=== PATIENT | female | born 1940 | race Two or more races ===

== ENCOUNTER → 2016-06-26 | Outpatient (CLI) | payer MEDICAID ==
--- NOTE | ~2016-06-26 | US128 ---
[id number] [facility] [address] [place], [place] [address] [id number] O MR#: [id number] Acc #: [id number] NAME: GRACY RAMOS : 1940 SEX: F STUDY DATE/TIME: 06/26/2016 13:43 UNIT: [facility] ROOM: STUDY DESCRIPTION: Thyroid Attending Physician: Audi Rios M.D. Referring Physician: Audi Rios M.D. Ordering Physician: Audi Rios M.D. Primary Care Physician: Audi Rios M.D. MEDICAL IMAGING REPORT This report is preliminary unless electronic signature is present EXAM Thyroid ultrasound. INDICATIONS Difficulty swallowing and tightness in the throat since 1998. Patient is on thyroid medication. TECHNIQUE wilson scale and color Doppler sonographic images were obtained through the patient's thyroid gland. FINDINGS Right lobe of the thyroid gland measures within normal size limits at 4.0 x 2.6 x 2.2 cm; left lobe is enlarged at 1.9 x 2.7 x 5 cm. Overall thyroid parenchyma is very heterogeneous, although I do not see any discrete nodules. IMPRESSION Heterogeneous thyroid parenchyma without focal thyroid nodules seen. Dictated by... Rosa House M.D. THIS IS AN ELECTRONICALLY VERIFIED REPORT Rosa House M.D. at 06/28/2016 10:08 AM ELIZA/omer TD: 06/26/2016 18:52 JOB #: [id number] MEDICAL IMAGING REPORT Page 1 of 1 COPY
== END | disposition home or self-care (01) ==
LOC: CGUS 12:50
DX: E04.9 Nontoxic goiter, unspecified (principal)
CPT/HCPCS: 76536

== ENCOUNTER → 2016-07-08 | Outpatient (CLI) | payer MEDICAID ==
--- NOTE | ~2016-07-08 | CR63 ---
[facility] A Service of [facility] RADIOLOGY TEXT RESULTS PATIENT: GRACY RAMOS LOCATION: [facility] : 36 UNIT #: [id number] AGE: [address]: JUAN PATEL APRN SEX: F ORDER DR: [id number] [facility] [address] [place], [place] [address] [id number] O MR#: [id number] Acc #: [id number] NAME: GRACY RAMOS : 1940 SEX: F STUDY DATE/TIME: 07/08/2016 10:10 UNIT: [facility] ROOM: STUDY DESCRIPTION: CR Chest 2 View Attending Physician: Abilio Patel M.D. Referring Physician: Abilio Patel M.D. Ordering Physician: Abilio Patel M.D. Primary Care Physician: Audi Rios M.D. MEDICAL IMAGING REPORT This report is preliminary unless electronic signature is present EXAM PA and lateral chest, 07/08/2016 at 10:10 HISTORY 76-year-old female with shortness of breath with non-exertion for 2 months. Former smoker. Hypertension. COMPARISON None FINDINGS There is ofla-og-yhghdxah generalized cardiac enlargement without evidence of pulmonary edema. Pulmonary vascular distribution is normal. Lungs appear free of acute airspace disease. Mild calcific atherosclerosis is seen within the thoracic aorta. Questionable calcified pleural plaquing at the posterior aspects of the lower chest is seen only on the lateral view. No acute osseous abnormalities are identified. IMPRESSION 1. No acute chest findings. 2. Scfl-yg-cvjxehnu cardiomegaly. No evidence of pulmonary edema. 3. Question of calcified pleural plaquing posteriorly over the lower chest. Dictated by... Florecita Prater M.D. THIS IS AN ELECTRONICALLY VERIFIED REPORT Florecita Prater M.D. at 07/11/2016 8:30 AM Joey TD: 07/08/2016 14:51 JOB #: [id number] [facility] A Service of [facility] RADIOLOGY TEXT RESULTS PATIENT: GRACY RAMOS LOCATION: [facility] #: [id number] : 36 UNIT #: [id number] AGE: [address]: JUAN PATEL APRN SEX: F ORDER DR: MEDICAL IMAGING REPORT Page 1 of 1 COPY
== END | disposition home or self-care (01) ==
LOC: CRAD 10:01
DX: R06.02 Shortness of breath (principal)
CPT/HCPCS: 71020